=== PATIENT | female | born 1990 | race African-American/Black ===

== ENCOUNTER 2018-05-31 23:30 | Emergency (ER) | payer OTHER ==
[~2018-05-31] VITALS: Ht 167.6 cm; Wt 102.1 kg
[2018-05-31 23:42] VITALS: Ht 167.6 cm; Wt 102.1 kg
[2018-06-01 00:43] LABS: BASOPHIL % 1.3 % (0-2); PLATELET COUNT 373 x10^3mcL (130-400)
[2018-06-01 00:45] LABS: RED CELL DISTRIBUTION WIDTH 16.6 % (11.5-14.5)
[2018-06-01 00:55] LABS: CALCIUM 8.9 mg/dL (8.5-10.1); CARBON DIOXIDE 24.8 mmol/L (21-32); CHLORIDE SERUM 103 mmol/L (98-107); GFR1 > 60 mL/min; GLUCOSE SERUM 104 mg/dL (74-106); SODIUM SERUM 138 mmol/L (136-145)
[2018-06-01 01:00] LABS: ALKALINE PHOSPHATASE 81 U/L (46-116); ALT/SGPT 19 U/L (14-59); AST/SGOT 17 U/L (15-37); BILIRUBIN TOTAL 0.2 mg/dL (0.20-1.00); LIPASE 158 IU/L (73-393); TOTAL PROTEIN, SERUM 7.8 g/dL (6.4-8.2)
[2018-06-01 01:04] LABS: ALBUMIN 3.3 g/dL (3.4-5.0)
[2018-06-01 03:19] VITALS: BP 130/79
== END 2018-06-01 03:19 | disposition home or self-care (01) ==
LOC: ED 23:30
PROVIDERS: Emergency Medicine
DX: R10.31 Right lower quadrant pain (principal); R10.32 Left lower quadrant pain; Z98.890 Other specified postprocedural states
CPT/HCPCS: J1885; J2270; J2405

== ENCOUNTER 2019-05-16 12:55 | Emergency (ER) | payer OTHER ==
[~2019-05-16] VITALS: Ht 167.6 cm; Wt 95.7 kg
[2019-05-16 13:06] VITALS: Ht 167.6 cm; Wt 95.7 kg
[2019-05-16 14:23] LABS: BASOPHIL % 0.1 % (0-2)
[2019-05-16 14:26] LABS: RED CELL DISTRIBUTION WIDTH 19.2 % (11.5-14.5)
[2019-05-16 14:27] LABS: PLATELET COUNT 529 x10^3mcL (130-400)
[2019-05-16 14:35] LABS: CALCIUM 8.4 mg/dL (8.5-10.1); CARBON DIOXIDE 25.8 mmol/L (21-32); CHLORIDE SERUM 105 mmol/L (98-107); CREATININE SERUM 0.9 mg/dL (0.6-1.0); GFR1 > 60 mL/min; GLUCOSE SERUM 112 mg/dL (74-106); POTASSIUM SERUM 3.8 mmol/L (3.5-5.1); SODIUM SERUM 140 mmol/L (136-145)
[2019-05-16 14:41] LABS: ALBUMIN 3.4 g/dL (3.4-5.0); ALKALINE PHOSPHATASE 68 U/L (46-116); ALT/SGPT 18 U/L (14-59); AST/SGOT 16 U/L (15-37); BILIRUBIN TOTAL 0.5 mg/dL (0.20-1.00); LIPASE 119 IU/L (73-393); TOTAL PROTEIN, SERUM 7.7 g/dL (6.4-8.2)
[2019-05-16 16:10] VITALS: BP 117/74
== END 2019-05-16 16:10 | disposition home or self-care (01) ==
LOC: ED 12:55
PROVIDERS: Emergency Medicine
DX: N39.0 Urinary tract infection, site not specified (principal); R10.30 Lower abdominal pain, unspecified
CPT/HCPCS: 36415

== ENCOUNTER 2019-06-07 13:54 | Emergency (ER) | payer OTHER ==
[~2019-06-07] VITALS: Ht 167.6 cm; Wt 93.9 kg
[2019-06-07 14:09] VITALS: Ht 167.6 cm; Wt 93.9 kg
[2019-06-07 14:48] LABS: BASOPHIL % 0.2 % (0-2)
[2019-06-07 14:53] LABS: PLATELET COUNT 457 x10^3mcL (130-400); RED CELL DISTRIBUTION WIDTH 18.3 % (11.5-14.5)
[2019-06-07 15:03] LABS: CALCIUM 8.6 mg/dL (8.5-10.1); CARBON DIOXIDE 27.9 mmol/L (21-32); CHLORIDE SERUM 103 mmol/L (98-107); CREATININE SERUM 0.9 mg/dL (0.6-1.0); GFR1 > 60 mL/min; GLUCOSE SERUM 83 mg/dL (74-106); POTASSIUM SERUM 3.4 mmol/L (3.5-5.1); SODIUM SERUM 138 mmol/L (136-145)
[2019-06-07 15:46] VITALS: BP 125/86
== END 2019-06-07 15:26 | disposition home or self-care (01) ==
LOC: ED 13:54
PROVIDERS: Emergency Medicine
DX: R10.9 Unspecified abdominal pain (principal)
CPT/HCPCS: 36415